=== PATIENT | male | born 1965 | race Caucasian/White ===

== ENCOUNTER 2017-06-02 12:49 | Emergency (ER) | payer OTHER ==
[~2017-06-02] VITALS: Ht 188 cm; Wt 132.9 kg
[~2017-06-02 12:49] MED LIST: NEURONTIN300 MG PO; VISTARIL25 MG PO
== END 2017-06-02 15:55 | disposition home or self-care (01) ==
LOC: ED 12:49
DX: H66.91 Otitis media, unspecified, right ear (principal); J45.909 Unspecified asthma, uncomplicated; I10 Essential (primary) hypertension; Z87.01 Personal history of pneumonia (recurrent); Z88.0 Allergy status to penicillin; Z79.899 Other long term (current) drug therapy; Z87.891 Personal history of nicotine dependence
CPT/HCPCS: 71020; 85025; 94640; 99283